=== PATIENT | female | born 1945 | race Caucasian/White ===

== ENCOUNTER 2024-03-27 13:22 | Outpatient (CLI) | payer MEDICARE, BC | END 2024-03-27 13:23 | disposition home or self-care (01) | LOC: CSHULT 13:22 | PROVIDERS: ATTEND Internal Medicine Cardiovascular Disease | DX: I48.0 Paroxysmal atrial fibrillation (principal); I08.1 Rheumatic disorders of both mitral and tricuspid valves; I37.1 Nonrheumatic pulmonary valve insufficiency | CPT/HCPCS: 93306 ==